=== PATIENT | female | born 1965 | race Caucasian/White ===

== ENCOUNTER 2016-05-02 20:38 | Emergency (ER) ==
[2016-05-02 20:51] VITALS: BP 108/61
--- NOTE | 2016-05-02 21:25 | PROVIDER DOCUMENTATION ---
HPI-Rash/Wound/ReCheck - General Chief Complaint: Rash Stated Complaint: ALLERGIC REACTION/RASH Time Seen by Provider: 05/02/16 21:04 Source: patient Allergies/Adverse Reactions: Allergies Allergy/AdvReac Type Severity Reaction Status Date / Time cephalexin monohydrate * Allergy Unknown Verified 05/02/16 20:43 [From Keflex] lidocaine Allergy Unknown Verified 05/02/16 20:43 Penicillins Allergy Unknown Verified 05/02/16 20:43 Sulfa (Sulfonamide Allergy Unknown Verified 05/02/16 20:43 Antibiotics) Home Medications: Home Medication List Medication Instructions Recorded Confirmed Last Taken Type Famotidine [Pepcid] 20 mg PO DAILY #20 tablet 05/02/16 Unknown Rx Hydroxyzine [Atarax] 25 mg PO TID #20 tablet 05/02/16 Unknown Rx Prednisone 20 mg PO DAILY #12 tablet 05/02/16 Unknown Rx Ranitidine [Zantac] 1 tab PO DAILY 05/02/16 05/02/16 05/02/16 History Venlafaxine [Effexor] 1 tab PO DAILY 05/02/16 05/02/16 05/02/16 History - History of Present Illness-Dermatology Nature of Presenting Problem: 51 y/o WF presents to the ED with rash x 1 day. Pt states that she has been on septra DS for 9 days due to a spider bite to her finger. States that she has never taken septra before. Reports that her son had a medication reaction on day 9 of septra as well in the past. States rash was red and started on her abdomen and spread to her trunk and proximal extremities and face. States mild itching. Review of Systems - Adult - REVIEW OF SYSTEMS - ADULT Constitutional: reports: no symptoms reported. denies: chills, fever Eyes: reports: no symptoms reported. denies: blurred vision, double vision Ears, Nose, Mouth & Throat: reports: no symptoms reported. denies: ear pain, sinus problem Cardiovascular: reports: no symptoms reported. denies: chest pain, palpitations Respiratory: reports: no symptoms reported. denies: dyspnea on exertion, shortness of breath, wheezing Gastrointestinal: reports: no symptoms reported. denies: nausea, vomiting Genitourinary: reports: no symptoms reported. denies: dysuria, frequency Musculoskeletal: reports: no symptoms reported. denies: joint pain, joint swelling Integumentary: reports: see HPI, itching, rash. denies: hives, nail changes, skin thickening Neurological: reports: no symptoms reported. denies: numbness, paresthesia Psychiatric: reports: no symptoms reported Endocrine: reports: no symptoms reported. denies: cold intolerance, heat intolerance Hematologic/Lymphatic: reports: no symptoms reported. denies: easy bruising, prolonged bleeding Allergic/Immunologic: reports: no symptoms reported All Other Systems: Reviewed and Negative Past History - Adult - PAST MEDICAL HISTORY-ADULT Review of Records: reports: Nursing Assessment Review, Medications Reviewed - SOCIAL HISTORY Smoking: denies Physical Exam-General - PHYSICAL EXAM-ADULT Initial Vital Signs Reviewed: Yes - CONSTITUTIONAL General Appearance: alert, mild distress - EYES Eyes: pink conjunctivae - HEAD, EARS, NOSE, MOUTH & THROAT HENMT: normocephalic/atraumatic, moist mucous membranes, pharynx normal - NECK Neck: supple, normal inspection. negative: lymphadenopathy - RESPIRATORY Respiratory: lungs clear, normal breath sounds, no respiratory distress, no accessory muscle use. negative: crackles, rales, rhonchi, stridor, wheezing, increased rate - CARDIOVASCULAR Cardiovascular: regular rate, rhythm. negative: bradycardia, tachycardia - MUSCULOSKELETAL Back Exam: normal inspection Extremity: normal gait - SKIN Integumentary: normal color, normal turgor, warm/dry, blanching, rash ( morbilliform rash noted to face, trunk, abdomen, proximal extremities. No herald patch noted.) - NEUROLOGIC Neurologic: negative: aphasia - PSYCHIATRIC Psych/Mental Status: normal mood/affect, normal thought content, normal thought process, oriented x 3 Progress - PLAN OF CARE/RESULTS Progress/Plan/Lab Results: Orders Category Date Time Status Dexamethasone [Decadron] Med 05/02/16 21:27 Discontinued 10 mg IM NOW ONE Diphenhydramine [Benadryl] Med 05/02/16 21:27 Discontinued 25 mg IM NOW ONE Famotidine [Pepcid] Med 05/02/16 21:27 Discontinued 40 mg PO NOW ONE Vital Signs Temp Pulse Resp BP Pulse Ox 05/02/16 20:44 98.6 F 86 20 108/61 98 cephalexin monohydrate * [From Keflex] Allergy (Verified 05/02/16 20:43) Unknown lidocaine Allergy (Verified 05/02/16 20:43) Unknown Penicillins Allergy (Verified 05/02/16 20:43) Unknown Sulfa (Sulfonamide Antibiotics) Allergy (Verified 05/02/16 20:43) Unknown Famotidine [Pepcid] 20 mg PO DAILY #20 tablet 05/02/16 Hydroxyzine [Atarax] 25 mg PO TID #20 tablet 05/02/16 Prednisone 20 mg PO DAILY #12 tablet 05/02/16 Ranitidine [Zantac] 1 tab PO DAILY 05/02/16 Venlafaxine [Effexor] 1 tab PO DAILY 05/02/16 Dr. Diego at bedside to examine pt; agrees with diagnosis and d/c plan. Departure - Departure Time of Disposition Order: 21:25 DIAGNOSIS: Allergic reaction caused by a drug Qualifiers: Encounter type: initial encounter Qualified Code(s): T78.40XA - Allergy, unspecified, initial encounter Disposition: HOME Certified Medical Emergency: Emergent Condition: Stable Additional Instructions: Take medications as directed. Return if difficulty breathing or swallowing. Follow up with PCP in 3-5 days for recheck. Discontinue Bactrim immediately. ED Follow Up Instructions: You have been treated by a care provider in the Emergency Department. These instructions are being provided to you so you can have an understanding of how to care for yourself upon discharge. Upon discharge from the Emergency Department, you are responsible for making arrangements for follow-up care by a physician of your choice. Take all prescribed medications as directed. Return to the Emergency Department immediately for any new or worsening symptoms. You may call the Physician Referral phone number at [phone] to obtain a list of Physicians who are taking new patients. Prescriptions: Hydroxyzine [Atarax] 25 mg PO TID #20 tablet Famotidine [Pepcid] 20 mg PO DAILY #20 tablet Prednisone 20 mg PO DAILY #12 tablet Referrals: Shaun Mota MD [STAFF PHYSICIAN] - None,PCP [Primary Care Provider] - Forms: Return to School/Parent Work Instructions: Famotidine tablets or gelcaps, Hydroxyurea capsules, Drug Allergy , [id number]-ks-[id number], Prednisone tablets Attestation - Physician/ [facility] Attestation Patient care was provided by Advanced Practice Provider:: Yes Advanced Practice Provider:: Faviola,Patti A. Advanced Practice Provider documentation review:: The Mid-level provider documentation, treatment plan and medical decision making was reviewed by the physician who agrees with all treatment and medical decision making by the MLP. The physician spent face to face time with patient:: Yes
[2016-05-02] MEDS ORDERED: DECADRON IM ONE (21:27)
[2016-05-02] MEDS ORDERED: PEPCID PO ONE (21:27)
[2016-05-02] MEDS ORDERED: BENADRYL IM ONE (21:27)
== END 2016-05-02 21:47 | disposition home or self-care (01) ==
LOC: P.ED 20:38
DX: T78.40XA Allergy, unspecified, initial encounter (principal); T50.905A Adverse effect of unspecified drugs, medicaments and biological substances, initial encounter; R21 Rash and other nonspecific skin eruption; L29.9 Pruritus, unspecified; Z79.899 Other long term (current) drug therapy
CPT/HCPCS: 96372; J1200